=== PATIENT | male | born 1980 | race Caucasian/White ===

== ENCOUNTER 2018-01-20 01:30 | Inpatient (IN) ==
[2018-01-20] MEDS ORDERED: Acetaminophen 325 MG TABLET PO ONE (01:44)
[2018-01-20] MEDS ORDERED: 0.9 % Sodium Chloride 1,000 ML IVC ONE ×2 (01:47→03:27)
--- NOTE | 2018-01-20 02:00 | Emergency Department Note ---
Disposition Clinical Impression: Septic arthritis Qualifiers: Septic arthritis location: hip Septic arthritis organism: due to unspecified organism Laterality: right Qualified Code(s): M00.9 - Pyogenic arthritis, unspecified Disposition: Admitted As Inpatient Condition: Good General Adult HPI - General Chief complaint: ED General Medical Stated complaint: Pinched Nerve Time Seen by Provider: 01/20/18 01:42 Source: patient Mode of arrival: private vehicle Limitations: no limitations Nursing Notes Reviewed: Yes Vital Signs Reviewed: Yes - History of Present Illness HPI Narrative: 37-year-old male comes emergency department from a local [facility] for severe right groin pain. Patient states he had pain similarly 89 months ago and he was told he was suffering from sciatica, he was treated he got better and then over the last week patient has noted a resurgence of the pain. Patient states last 4 hours pain has been excruciating starts in his hip in the trochanter area and radiates around groin, pain is 10 out of 10. Patient states pain is sharp, worse with movement of the extremity, palpation of the groin. Patient denies slips, trips, trauma, falls. He states he was hunting footballs 3-4 days ago but other than that he has not done anything to for injury. Patient denies bowel or bladder incontinence, saddle anesthesia, numbness, tingling, paresthesia. He states some decreased strength but this is related to pain. Onset (ago): day(s) Location: other Radiation: other Pain Severity: severe Pain Scale: 10 Quality: sharp Consistency: constant, intermittent, Worsening Improves with: rest Worsens with: movement Associated symptoms: Denies: confusion, chest pain, cough, diaphoresis, fever/chills, headaches, loss of appetite, malaise, nausea/vomiting, rash, seizure, shortness of breath, syncope, weakness Treatments Prior to Arrival: none - Related Data Home Medications Medication Instructions Recorded Confirmed RX: No Known Home Drugs 01/20/18 01/20/18 Allergies Allergy/AdvReac Type Severity Reaction Status Date / Time No Known Allergies Allergy Verified 01/20/18 01:39 All systems ED: reviewed and negative except as stated. Review of Systems: As Per HPI Constitutional: Denies: fever, chills, weakness Cardiovascular: Denies: chest pain, palpitations Respiratory: Denies: cough Gastrointestinal: Denies: abdominal pain, nausea, vomiting Genitourinary: Denies: urgency, dysuria, frequency, hematuria, discharge, testicular pain, testicular mass, genital lesions Musculoskeletal: Reports: myalgia, other (right trochanter area with radiation to right groin). Denies: back pain, neck pain, joint swelling, arthralgia Integumentary: Denies: rash, lesions Neurological: Denies: headache, weakness, numbness, paresthesias, confusion Past Medical History - Past Medical History Attestation: Yes The following information was validated with the patient. Source: patient Medical history: Reports: no medical history Psychiatric history: Reports: no psych history - Social History Smoking Status: Never smoker Alcohol use: Reports: none Drug use: Reports: IV Drug Use Physical Exam - General Limitations: no limitations General appearance: alert, in distress (related to pain) - Head Head exam: atraumatic, normocephalic, normal inspection - Eye Eye exam: Present: normal appearance - ENT ENT exam: mucous membranes moist - Neck Neck exam: Present: normal inspection, full ROM, trachea midline. Absent: tend erness - Chest Chest inspection: Present: normal inspection, symmetric chest wall rise - Respiratory Respiratory exam: Present: normal lung sounds bilaterally - Cardiovascular Cardiovascular exam: Present: regular rate, normal rhythm, normal heart sounds - Abdominal Exam Abdominal exam: Present: soft, Non-Tender, normal bowel sounds - Male exam: Present: normal inspection, normal testicular lie, circumcised. Absent: penile swelling, erythema, testicular tenderness - Expanded Lower Extremity Exam Hip/Pelvis exam: Present: normal inspection, tenderness (bursa area with radiation around to groin). Absent: full ROM (limited due to pain), swelling Upper leg exam: Present: normal inspection, tenderness (inguinal canal). Absent: full ROM Knee exam: Present: normal inspection, full ROM Lower leg exam: Present: normal inspection, full ROM Ankle exam: Present: normal inspection, full ROM Foot/toe exam: Present: normal inspection, full ROM Neurovascular/Tendon exam: Present: normal capillary refill. Absent: pulse deficit, motor deficit, sensory deficit Gait: unable to bear weight - Back Exam Back exam: Present: normal inspection, full ROM, sciatic notch tenderness (R) (minimal compared to hip and inguinal area). Absent: tenderness, CVA tenderness (R), CVA tenderness (L), muscle spasm - Neurological Exam Neurological exam: Present: alert, oriented X3 - Psychiatric Psychiatric exam: Present: anxious - Skin Skin exam: Present: warm, dry, intact, normal color Course Course Narrative: Well developed male in moderate amount of distress related to pain. Pt with slight fever upon arrival at 100.7, tachycardic EKG reveals sinus tachycardia, no evidence of ischemia.. Pt appears in pain. Patient is moaning, he is diaphoretic and is grabbing his right leg. Examination reveals no spinal tenderness, full range of motion to spine and back. There is tenderness to the dorsal area of the right hip that is severe, severe tenderness with palpation in the right groin. Due to pain unable to tolerate standing for hernia palpation. I do not appreciate any skin lesions to body, no redness, swelling. Normal testicular lie, no pain or tenderness and scrotal area, no penile swelling. There is mild tenderness to the right sciatic area however this does not elicit near the screaming as the hip. Patient is neurovascularly intact, has full range of motion to knee, ankle, foot. Full sensation. Patient is able to move his right hip however he does complain of increasing pain whenever he does sound and is currently difficult to do this. We will treat pain, obtain labs and reevaluate. Patient with known past IV drug use, has been clean for greater than 4 months. The conversation with patient regarding treating pain, patient states he is in recovery, he is not on any opiate blockers, he does not feel concern at this time for repeat addiction, he states the pain is so severe that it is okay. We did discuss alternative options as well. Patient in IV drug use, concern for spinal abscess, septic arthritis. It is possible patient pulled a muscle while punting footballs and he is developing a viral illness however, I feel be prudent to look for abscesses, septic arthritis prior to making this determination. - Reevaluation(s) Reevaluation #1: Patient resting quietly, he has remained in some pain, continue to treat pain medication. Labs returned with an elevated white count of 16.3 with left shift, ESR 26, CRP 22, lactic acid 1.6, BMP is negative. CTA of the hip is suggestive of septic arthritis. Tachycardia has resolved, temperature is decreasing, no evidence of severe sepsis. I did call and speak with Dr. Garcia from orthopedics, he recommends admission to the hospital with the hospitalist, IV antibiotics, consulting IR and Ortho. I did discuss this with patient, he is agreeable to admission to the hospital for management and pain control. Spoke with the hospitalist who is agreeable to accept patient. We will transition care the hospitalist team at this time. Time: 04:19 Vital Signs Temperature 100.7 F H 01/20/18 01:34 Pulse Rate 122 01/20/18 01:34 Respiratory Rate 20 01/20/18 01:34 Blood Pressure 164/89 01/20/18 01:34 O2 Sat by Pulse Oximetry 98 01/20/18 01:34 Temperature 99.2 F 01/20/18 03:45 Pulse Rate 92 01/20/18 03:45 Respiratory Rate 21 01/20/18 04:31 Blood Pressure 138/74 01/20/18 04:31 O2 Sat by Pulse Oximetry 100 01/20/18 03:45 Oxygen Delivery Oxygen Delivery Room Air Medical Decision Making - Lab Data Lab results reviewed: Yes I reviewed the patient's lab results. Lab results narrative: All Lab Results (24 Hours) 01/20/18 01/20/18 01/20/18 Range/Units 02:25 02:25 02:25 WBC 16.3 H (4.3-11.1) K/mcL RBC 5.01 (4.19-5.50) M/mcL Hgb 15.1 (12.9-16.9) g/dL Hct 45.0 (37.5-50.1) % MCV 89.8 (83.0-100.0) fL MCH 30.1 (28.0-33.3) pg MCHC 33.6 (31.6-35.5) g/dL RDW 12.7 (11.5-14.5) % Plt Count 265 (140-400) K/mcL MPV 9.6 (9.4-12.4) fL Immature Gran % 0.4 (0-4) % Seg Neutrophils % 79.1 % Lymphocytes % 13.5 % Monocytes % 6.4 % Eosinophils % 0.2 % Basophils % 0.4 % Neutrophils # 13.0 H (1.6-8.9) K/mcL Lymphocytes # 2.2 (0.6-4.6) K/mcL Monocytes # 1.0 (0.0-1.3) K/mcL Eosinophils # 0.0 (0.0-0.6) K/mcL Basophils # 0.1 (0.0-0.2) K/mcL ESR 26 H (0-10) mm/hr Sodium 137 (136-145) mEq/L Potassium 3.8 (3.5-5.1) mEq/L Chloride 105 (98-107) mEq/L Carbon Dioxide 23 (23-29) mEq/L BUN 9 (6-20) mg/dL Creatinine 0.83 (0.70-1.30) mg/dL Est GFR ( Amer) > 60 (> 60) Est GFR (Non-Af Amer) > 60 (> 60) BUN/Creatinine Ratio 11 (6-26) Glucose 108 H (70-105) mg/dL Calculated Osmolality 283 (280-300) Lactic Acid (0.5-2.2) mmol/L Calcium 9.4 (8.6-10.3) mg/dL Total Bilirubin 0.3 (0.3-1.0) mg/dL AST 14 (13-39) Units/L ALT 12 (7-52) Units/L Alkaline Phosphatase 56 (34-104) Units/L C-Reactive Protein 22 H (Less than 10) mg/L Serum Total Protein 7.8 (6.4-8.9) g/dL Albumin 4.5 (3.5-5.7) g/dL Globulin 3.3 (2.4-3.5) g/dL Albumin/Globulin Ratio 1.4 (1.1-2.2) Urine Color (Yellow) Urine Clarity (Clear) Urine pH (5.0-8.0) pH Units Ur Specific Brantley (1.010-1.025) Urine Protein (Neg-Trace) mg/dL Urine Glucose (UA) (Normal) mg/dL Urine Ketones (Negative) mg/dL Urine Blood (Negative) Urine Nitrite (Negative) Urine Bilirubin (Negative) Urine Urobilinogen (Normal) mg/dL Ur Leukocyte Esterase (Negative) Urine Microscopic RBC (0-3) per hpf Urine Microscopic WBC (0-3) per hpf Ur Squamous Epith Cells (None-Few) per lpf Urine Bacteria (None-Few) per hpf Hyaline Casts (None-Few) per lpf Ur Culture Indicated? (NO) 01/20/18 01/20/18 Range/Units 02:25 03:24 WBC (4.3-11.1) K/mcL RBC (4.19-5.50) M/mcL Hgb (12.9-16.9) g/dL Hct (37.5-50.1) % MCV (83.0-100.0) fL MCH (28.0-33.3) pg MCHC (31.6-35.5) g/dL RDW (11.5-14.5) % Plt Count (140-400) K/mcL MPV (9.4-12.4) fL Immature Gran % (0-4) % Seg Neutrophils % % Lymphocytes % % Monocytes % % Eosinophils % % Basophils % % Neutrophils # (1.6-8.9) K/mcL Lymphocytes # (0.6-4.6) K/mcL Monocytes # (0.0-1.3) K/mcL Eosinophils # (0.0-0.6) K/mcL Basophils # (0.0-0.2) K/mcL ESR (0-10) mm/hr Sodium (136-145) mEq/L Potassium (3.5-5.1) mEq/L Chloride (98-107) mEq/L Carbon Dioxide (23-29) mEq/L BUN (6-20) mg/dL Creatinine (0.70-1.30) mg/dL Est GFR ( Amer) (> 60) Est GFR (Non-Af Amer) (> 60) BUN/Creatinine Ratio (6-26) Glucose (70-105) mg/dL Calculated Osmolality (280-300) Lactic Acid 1.6 (0.5-2.2) mmol/L Calcium (8.6-10.3) mg/dL Total Bilirubin (0.3-1.0) mg/dL AST (13-39) Units/L ALT (7-52) Units/L Alkaline Phosphatase (34-104) Units/L C-Reactive Protein (Less than 10) mg/L Serum Total Protein (6.4-8.9) g/dL Albumin (3.5-5.7) g/dL Globulin (2.4-3.5) g/dL Albumin/Globulin Ratio (1.1-2.2) Urine Color Yellow (Yellow) Urine Clarity Clear (Clear) Urine pH 5.5 (5.0-8.0) pH Units Ur Specific Brantley 1.017 (1.010-1.025) Urine Protein Negative (Neg-Trace) mg/dL Urine Glucose (UA) Normal (Normal) mg/dL Urine Ketones Negative (Negative) mg/dL Urine Blood Negative (Negative) Urine Nitrite Negative (Negative) Urine Bilirubin Negative (Negative) Urine Urobilinogen Normal (Normal) mg/dL Ur Leukocyte Esterase Small H (Negative) Urine Microscopic RBC 3-5 H (0-3) per hpf Urine Microscopic WBC 5-15 H (0-3) per hpf Ur Squamous Epith Cells Moderate H (None-Few) per lpf Urine Bacteria None Seen (None-Few) per hpf Hyaline Casts None Seen (None-Few) per lpf Ur Culture Indicated? YES A (NO) Result diagrams: 01/20/18 02:25 01/20/18 02:25 Lab Results 01/20/18 01/20/18 01/20/18 Range/Units 02:25 02:25 02:25 WBC 16.3 H (4.3-11.1) K/mcL RBC 5.01 (4.19-5.50) M/mcL Hgb 15.1 (12.9-16.9) g/dL Hct 45.0 (37.5-50.1) % MCV 89.8 (83.0-100.0) fL MCH 30.1 (28.0-33.3) pg MCHC 33.6 (31.6-35.5) g/dL RDW 12.7 (11.5-14.5) % Plt Count 265 (140-400) K/mcL MPV 9.6 (9.4-12.4) fL Immature Gran % 0.4 (0-4) % Seg Neutrophils % 79.1 % Lymphocytes % 13.5 % Monocytes % 6.4 % Eosinophils % 0.2 % Basophils % 0.4 % Neutrophils # 13.0 H (1.6-8.9) K/mcL Lymphocytes # 2.2 (0.6-4.6) K/mcL Monocytes # 1.0 (0.0-1.3) K/mcL Eosinophils # 0.0 (0.0-0.6) K/mcL Basophils # 0.1 (0.0-0.2) K/mcL ESR 26 H (0-10) mm/hr Sodium 137 (136-145) mEq/L Potassium 3.8 (3.5-5.1) mEq/L Chloride 105 (98-107) mEq/L Carbon Dioxide 23 (23-29) mEq/L BUN 9 (6-20) mg/dL Creatinine 0.83 (0.70-1.30) mg/dL Est GFR ( Amer) > 60 (> 60) Est GFR (Non-Af Amer) > 60 (> 60) BUN/Creatinine Ratio 11 (6-26) Glucose 108 H (70-105) mg/dL Calculated Osmolality 283 (280-300) Lactic Acid (0.5-2.2) mmol/L Calcium 9.4 (8.6-10.3) mg/dL Total Bilirubin 0.3 (0.3-1.0) mg/dL AST 14 (13-39) Units/L ALT 12 (7-52) Units/L Alkaline Phosphatase 56 (34-104) Units/L C-Reactive Protein 22 H (Less than 10) mg/L Serum Total Protein 7.8 (6.4-8.9) g/dL Albumin 4.5 (3.5-5.7) g/dL Globulin 3.3 (2.4-3.5) g/dL Albumin/Globulin Ratio 1.4 (1.1-2.2) Urine Color (Yellow) Urine Clarity (Clear) Urine pH (5.0-8.0) pH Units Ur Specific Brantley (1.010-1.025) Urine Protein (Neg-Trace) mg/dL Urine Glucose (UA) (Normal) mg/dL Urine Ketones (Negative) mg/dL Urine Blood (Negative) Urine Nitrite (Negative) Urine Bilirubin (Negative) Urine Urobilinogen (Normal) mg/dL Ur Leukocyte Esterase (Negative) Urine Microscopic RBC (0-3) per hpf Urine Microscopic WBC (0-3) per hpf Ur Squamous Epith Cells (None-Few) per lpf Urine Bacteria (None-Few) per hpf Hyaline Casts (None-Few) per lpf Ur Culture Indicated? (NO) 01/20/18 01/20/18 Range/Units 02:25 03:24 WBC (4.3-11.1) K/mcL RBC (4.19-5.50) M/mcL Hgb (12.9-16.9) g/dL Hct (37.5-50.1) % MCV (83.0-100.0) fL MCH (28.0-33.3) pg MCHC (31.6-35.5) g/dL RDW (11.5-14.5) % Plt Count (140-400) K/mcL MPV (9.4-12.4) fL Immature Gran % (0-4) % Seg Neutrophils % % Lymphocytes % % Monocytes % % Eosinophils % % Basophils % % Neutrophils # (1.6-8.9) K/mcL Lymphocytes # (0.6-4.6) K/mcL Monocytes # (0.0-1.3) K/mcL Eosinophils # (0.0-0.6) K/mcL Basophils # (0.0-0.2) K/mcL ESR (0-10) mm/hr Sodium (136-145) mEq/L Potassium (3.5-5.1) mEq/L Chloride (98-107) mEq/L Carbon Dioxide (23-29) mEq/L BUN (6-20) mg/dL Creatinine (0.70-1.30) mg/dL Est GFR ( Amer) (> 60) Est GFR (Non-Af Amer) (> 60) BUN/Creatinine Ratio (6-26) Glucose (70-105) mg/dL Calculated Osmolality (280-300) Lactic Acid 1.6 (0.5-2.2) mmol/L Calcium (8.6-10.3) mg/dL Total Bilirubin (0.3-1.0) mg/dL AST (13-39) Units/L ALT (7-52) Units/L Alkaline Phosphatase (34-104) Units/L C-Reactive Protein (Less than 10) mg/L Serum Total Protein (6.4-8.9) g/dL Albumin (3.5-5.7) g/dL Globulin (2.4-3.5) g/dL Albumin/Globulin Ratio (1.1-2.2) Urine Color Yellow (Yellow) Urine Clarity Clear (Clear) Urine pH 5.5 (5.0-8.0) pH Units Ur Specific Brantley 1.017 (1.010-1.025) Urine Protein Negative (Neg-Trace) mg/dL Urine Glucose (UA) Normal (Normal) mg/dL Urine Ketones Negative (Negative) mg/dL Urine Blood Negative (Negative) Urine Nitrite Negative (Negative) Urine Bilirubin Negative (Negative) Urine Urobilinogen Normal (Normal) mg/dL Ur Leukocyte Esterase Small H (Negative) Urine Microscopic RBC 3-5 H (0-3) per hpf Urine Microscopic WBC 5-15 H (0-3) per hpf Ur Squamous Epith Cells Moderate H (None-Few) per lpf Urine Bacteria None Seen (None-Few) per hpf Hyaline Casts None Seen (None-Few) per lpf Ur Culture Indicated? YES A (NO) - Radiology Data Radiology results reviewed: Yes I reviewed the patient's radiology results. - EKG Data EKG #1 EKG attestation: Yes I reviewed and interpreted this EKG.
[2018-01-20] MEDS ORDERED: *HR* Nalbuphine 10 MG/ML AMPUL IVP ONE (02:14)
[2018-01-20 02:39] LABS: Basophils # 0.1 K/mcL (0.0-0.2); Basophils % 0.4 %; Eosinophils % 0.2 %; Hemoglobin 15.1 g/dL (12.9-16.9); Immature Granulocytes % 0.4 % (0-4); Lymphocytes # 2.2 K/mcL (0.6-4.6); Lymphocytes % 13.5 %; Mean Corpuscular HGB Conc 33.6 g/dL (31.6-35.5); Mean Corpuscular Hemoglobin 30.1 pg (28.0-33.3); Mean Corpuscular Volume 89.8 fL (83.0-100.0); Mean Platelet Volume 9.6 fL (9.4-12.4); Monocytes % 6.4 %; Platelet Count 265 K/mcL (140-400); Red Blood Count 5.01 M/mcL (4.19-5.50); Red Cell Distribution Width 12.7 % (11.5-14.5); Segmented Neutrophils % 79.1 %
[2018-01-20 03:04] LABS: Alanine Aminotransferase 12 Units/L (7-52); Albumin 4.5 g/dL (3.5-5.7); Albumin/Globulin Ratio 1.4 (1.1-2.2); Alkaline Phosphatase 56 Units/L (34-104); Aspartate Amino Transferase 14 Units/L (13-39); BUN/Creatinine Ratio 11 (6-26); Bilirubin,Total 0.3 mg/dL (0.3-1.0); Blood Urea Nitrogen 9 mg/dL (6-20); C-Reactive Protein 22 mg/L (Less than 10); Calcium 9.4 mg/dL (8.6-10.3); Carbon Dioxide 23 mEq/L (23-29); Chloride 105 mEq/L (98-107); Globulin 3.3 g/dL (2.4-3.5); Glucose 108 mg/dL (70-105); Osmolality,Calculated 283 (280-300); Potassium 3.8 mEq/L (3.5-5.1); Sodium 137 mEq/L (136-145); Total Protein 7.8 g/dL (6.4-8.9); eGFR For Non-African Americans > 60 (> 60)
[2018-01-20] MEDS ORDERED: Isovue-370 500 ML INFUS..BTL IV ONE (03:13)
[2018-01-20] MEDS ORDERED: *HR* FentaNYL (PF) 100 MCG/2 ML VIAL IVP ONE (03:27)
[2018-01-20 03:44] LABS: Bilirubin,Urine Negative (Negative); Blood,Urine Negative (Negative); Clarity,Urine Clear (Clear); Color,Urine Yellow (Yellow); Glucose,Urine (UA) Normal (Normal); Ketones,Urine Negative (Negative); Leukocyte Esterase,Urine Small (Negative); Nitrite,Urine Negative (Negative); PH,Urine 5.5 pH Units (5.0-8.0); Protein,Urine Negative (Neg-Trace); Specific Gravity,Urine 1.017 (1.010-1.025); Urobilinogen,Urine Normal (Normal)
[2018-01-20 03:45] LABS: Bacteria,Urine None Seen per hpf (None-Few); Hyaline Casts,Urine None Seen per lpf (None-Few); Squamous Epithelial Cell,Urine Moderate per lpf (None-Few)
[2018-01-20] MEDS ORDERED: cefTRIAXone 2,000 MG in 0.9 % Sodium Chloride Mini Bag 100 ML IVPB ONE (03:58)
[2018-01-20] MEDS ORDERED: *HR* LORazepam 2 MG/ML VIAL IVP ONE (04:05)
--- NOTE | 2018-01-20 04:48 | Emergency Department Note ---
Disposition Clinical Impression: Septic arthritis Qualifiers: Septic arthritis location: hip Septic arthritis organism: due to unspecified organism Laterality: right Qualified Code(s): M00.9 - Pyogenic arthritis, unspecified Disposition: Admitted As Inpatient Condition: Good General Adult HPI - General Chief complaint: ED General Medical Stated complaint: Pinched Nerve Time Seen by Provider: 01/20/18 01:42 Source: patient Mode of arrival: private vehicle Limitations: no limitations Nursing Notes Reviewed: Yes Vital Signs Reviewed: Yes - History of Present Illness Location: other Pain Scale: 10 Quality: sharp Improves with: rest Worsens with: movement Associated symptoms: Denies: confusion, chest pain, cough, diaphoresis, fever/chills, headaches, loss of appetite, malaise, nausea/vomiting, rash, seizure, shortness of breath, syncope, weakness Treatments Prior to Arrival: none - Related Data Home Medications Medication Instructions Recorded Confirmed No Known Home Drugs 01/20/18 01/20/18 Allergies Allergy/AdvReac Type Severity Reaction Status Date / Time No Known Allergies Allergy Verified 01/20/18 01:39 Constitutional: Denies: fever, chills, weakness Cardiovascular: Denies: chest pain, palpitations Respiratory: Denies: cough Gastrointestinal: Denies: abdominal pain, nausea, vomiting Genitourinary: Denies: urgency, dysuria, frequency, hematuria, discharge, testicular pain, testicular mass, genital lesions Musculoskeletal: Reports: myalgia, other (right trochanter area with radiation to right groin). Denies: back pain, neck pain, joint swelling, arthralgia Integumentary: Denies: rash, lesions Neurological: Denies: headache, weakness, numbness, paresthesias, confusion Past Medical History - Past Medical History Medical history: Reports: no medical history Psychiatric history: Reports: no psych history - Social History Smoking Status: Never smoker Alcohol use: Reports: none Drug use: Reports: IV Drug Use Physical Exam - General Limitations: no limitations General appearance: alert, in distress (related to pain) Course Vital Signs Temperature 100.7 F H 01/20/18 01:34 Pulse Rate 122 01/20/18 01:34 Respiratory Rate 20 01/20/18 01:34 Blood Pressure 164/89 01/20/18 01:34 O2 Sat by Pulse Oximetry 98 01/20/18 01:34 Temperature 99.2 F 01/20/18 03:45 Pulse Rate 92 01/20/18 03:45 Respiratory Rate 21 01/20/18 04:31 Blood Pressure 138/74 01/20/18 04:31 O2 Sat by Pulse Oximetry 100 01/20/18 03:45 Oxygen Delivery Oxygen Delivery Room Air Medical Decision Making - Medical Records Medical records reviewed: Yes I reviewed the patient's medical records. - Lab Data Lab results reviewed: Yes I reviewed the patient's lab results. Result diagrams: 01/20/18 02:25 01/20/18 02:25 Lab Results 01/20/18 01/20/18 01/20/18 Range/Units 02:25 02:25 02:25 WBC 16.3 H (4.3-11.1) K/mcL RBC 5.01 (4.19-5.50) M/mcL Hgb 15.1 (12.9-16.9) g/dL Hct 45.0 (37.5-50.1) % MCV 89.8 (83.0-100.0) fL MCH 30.1 (28.0-33.3) pg MCHC 33.6 (31.6-35.5) g/dL RDW 12.7 (11.5-14.5) % Plt Count 265 (140-400) K/mcL MPV 9.6 (9.4-12.4) fL Immature Gran % 0.4 (0-4) % Seg Neutrophils % 79.1 % Lymphocytes % 13.5 % Monocytes % 6.4 % Eosinophils % 0.2 % Basophils % 0.4 % Neutrophils # 13.0 H (1.6-8.9) K/mcL Lymphocytes # 2.2 (0.6-4.6) K/mcL Monocytes # 1.0 (0.0-1.3) K/mcL Eosinophils # 0.0 (0.0-0.6) K/mcL Basophils # 0.1 (0.0-0.2) K/mcL ESR 26 H (0-10) mm/hr Sodium 137 (136-145) mEq/L Potassium 3.8 (3.5-5.1) mEq/L Chloride 105 (98-107) mEq/L Carbon Dioxide 23 (23-29) mEq/L BUN 9 (6-20) mg/dL Creatinine 0.83 (0.70-1.30) mg/dL Est GFR ( Amer) > 60 (> 60) Est GFR (Non-Af Amer) > 60 (> 60) BUN/Creatinine Ratio 11 (6-26) Glucose 108 H (70-105) mg/dL Calculated Osmolality 283 (280-300) Lactic Acid (0.5-2.2) mmol/L Calcium 9.4 (8.6-10.3) mg/dL Total Bilirubin 0.3 (0.3-1.0) mg/dL AST 14 (13-39) Units/L ALT 12 (7-52) Units/L Alkaline Phosphatase 56 (34-104) Units/L C-Reactive Protein 22 H (Less than 10) mg/L Serum Total Protein 7.8 (6.4-8.9) g/dL Albumin 4.5 (3.5-5.7) g/dL Globulin 3.3 (2.4-3.5) g/dL Albumin/Globulin Ratio 1.4 (1.1-2.2) Urine Color (Yellow) Urine Clarity (Clear) Urine pH (5.0-8.0) pH Units Ur Specific Lucas (1.010-1.025) Urine Protein (Neg-Trace) mg/dL Urine Glucose (UA) (Normal) mg/dL Urine Ketones (Negative) mg/dL Urine Blood (Negative) Urine Nitrite (Negative) Urine Bilirubin (Negative) Urine Urobilinogen (Normal) mg/dL Ur Leukocyte Esterase (Negative) Urine Microscopic RBC (0-3) per hpf Urine Microscopic WBC (0-3) per hpf Ur Squamous Epith Cells (None-Few) per lpf Urine Bacteria (None-Few) per hpf Hyaline Casts (None-Few) per lpf Ur Culture Indicated? (NO) 01/20/18 01/20/18 Range/Units 02:25 03:24 WBC (4.3-11.1) K/mcL RBC (4.19-5.50) M/mcL Hgb (12.9-16.9) g/dL Hct (37.5-50.1) % MCV (83.0-100.0) fL MCH (28.0-33.3) pg MCHC (31.6-35.5) g/dL RDW (11.5-14.5) % Plt Count (140-400) K/mcL MPV (9.4-12.4) fL Immature Gran % (0-4) % Seg Neutrophils % % Lymphocytes % % Monocytes % % Eosinophils % % Basophils % % Neutrophils # (1.6-8.9) K/mcL Lymphocytes # (0.6-4.6) K/mcL Monocytes # (0.0-1.3) K/mcL Eosinophils # (0.0-0.6) K/mcL Basophils # (0.0-0.2) K/mcL ESR (0-10) mm/hr Sodium (136-145) mEq/L Potassium (3.5-5.1) mEq/L Chloride (98-107) mEq/L Carbon Dioxide (23-29) mEq/L BUN (6-20) mg/dL Creatinine (0.70-1.30) mg/dL Est GFR ( Amer) (> 60) Est GFR (Non-Af Amer) (> 60) BUN/Creatinine Ratio (6-26) Glucose (70-105) mg/dL Calculated Osmolality (280-300) Lactic Acid 1.6 (0.5-2.2) mmol/L Calcium (8.6-10.3) mg/dL Total Bilirubin (0.3-1.0) mg/dL AST (13-39) Units/L ALT (7-52) Units/L Alkaline Phosphatase (34-104) Units/L C-Reactive Protein (Less than 10) mg/L Serum Total Protein (6.4-8.9) g/dL Albumin (3.5-5.7) g/dL Globulin (2.4-3.5) g/dL Albumin/Globulin Ratio (1.1-2.2) Urine Color Yellow (Yellow) Urine Clarity Clear (Clear) Urine pH 5.5 (5.0-8.0) pH Units Ur Specific Lucas 1.017 (1.010-1.025) Urine Protein Negative (Neg-Trace) mg/dL Urine Glucose (UA) Normal (Normal) mg/dL Urine Ketones Negative (Negative) mg/dL Urine Blood Negative (Negative) Urine Nitrite Negative (Negative) Urine Bilirubin Negative (Negative) Urine Urobilinogen Normal (Normal) mg/dL Ur Leukocyte Esterase Small H (Negative) Urine Microscopic RBC 3-5 H (0-3) per hpf Urine Microscopic WBC 5-15 H (0-3) per hpf Ur Squamous Epith Cells Moderate H (None-Few) per lpf Urine Bacteria None Seen (None-Few) per hpf Hyaline Casts None Seen (None-Few) per lpf Ur Culture Indicated? YES A (NO) - Radiology Data Radiology results reviewed: Yes I reviewed the patient's radiology results. Hip CT 01/20/18 03:13 IMPRESSION: Findings are most suggestive of septic arthritis on the right. D/ / Rufino Neri MD / Rufino Neri MD Interpreting Provider: Rufino Neri MD - EKG Data EKG #1 EKG attestation: Yes I reviewed and interpreted this EKG. EKG results narrative: EKG shows sinus tachycardia with ventricular rate of 117. No ST segment elevation or depression. No ectopy. Critical Care Time Critical Care Time: Yes Total Critical Care Time: 30 Attestation: Critical care performed: Time is exclusive of separately billable procedures. Time includes: direct patient care, patient reassessment, coordination of patient care, interpretation of data (laboratory data, radiology data, and respiratory data), review of patient's medical records, medical consultation and documentation of patient care. Procedures included in critical care time: Procedures excluded from critical care time: Attestation Statement - Attestation Attestation: I, Alberto Shultz MD, personally evaluated this patient and discussed their management with the midlevel provicer, PAC[employer] ESC[employer]. I reviewed the midlevel provider's note and agree with the documented findings, medical decision making, and plan of care. 37-year-old male presents to the emergency department with a complaint of right hip pain. He denies any known injury. He states it is been hurting slightly for the past several days but tonight several hours prior to arrival the pain became acutely more severe. The pain is primarily in the right inguinal and groin region down into the anterior medial right thigh. No numbness or tingling or weakness. No mid back pain. Patient febrile and tachycardic on arrival. He does have a history of IV drug use in the past but has not used any for more than 4 months. On examination patient is a well-developed well-nourished male in no acute distress but does appear to be in moderate to severe pain. He is alert and oriented 3. No cyanosis or diaphoresis. Breath sounds are clear and equal bilaterally. Heart regular with a mild tachycardia. Abdomen soft and nontender with normal bowel sounds. There is marked tenderness palpation of the right hip and groin area. Marked pain with any movement of the right hip. Neurovascular function intact distally. Labs reviewed. CT of the hip shows an effusion, likely septic arthritis. Blood cultures obtained. IV antibiotics initiated. The orthopedist pulmonology technician, Dr. Garcia, was consulted and will follow-up with the patient in the hospital. The hospitalist, Dr. Hampton, was consulted and accepted admission of the patient.
[2018-01-20] MEDS ORDERED: Naloxone 0.4 MG/ML INJ IVP PRN (05:04)
[2018-01-20] MEDS: OXYCODONE Oral CONC 10 MG/0.5 ML ORAL.SYG SL PRN ×4 (05:26→20:21)
[2018-01-20] MEDS: 0.9 % Sodium Chloride 1,000 ML IVC SCH ×2 (05:27→21:33)
--- NOTE | 2018-01-20 06:52 | Orthopedic Consult Note ---
Date of Encounter: 01/20/18 Time of Encounter: 06:51 History of Present Illness HPI: Mr. Perez is a 37 year old male Reports right hip pain for 48 hours. Patient relates that 2 daily taking a f ootball on Thursday. Patient has a history of drug use denies any recent IV drug use. Patient is seen in his room with his right leg in a fully flexed position of the hip. Patient has decreased motion secondary to pain. CT scan was reviewed shows fluid in the hip joint, patient has elevated white count elevated sedimentation rate elevated CRP. Recommend ultrasound-guided right hip aspiration. Past Med Surg Social Fam HX - Past Medical History Medical history: no medical history Psychiatric history: no psych history - Past Surgical History Surgical History: appendectomy - Social History Smoking Status: Never smoker Smokeless Tobacco Status: No Alcohol use: none Drug use: IV Drug Use Medications and Allergies No Known Home Drugs 01/20/18 [History] Allergy/AdvReac Type Severity Reaction Status Date / Time No Known Allergies Allergy Verified 01/20/18 01:39 All Systems Reviewed: The remainder of the systems were reviewed and are negative Physical Exam - Constitutional Vitals: Temp Pulse Resp BP Pulse Ox 99.2 F 110 18 129/75 96 01/20/18 05:08 01/20/18 05:08 01/20/18 05:08 01/20/18 05:08 01/20/18 05:08 Results - Labs Result Diagrams: 01/20/18 02:25 01/20/18 02:25 Labs: Abnormal lab results WBC 16.3 K/mcL (4.3-11.1) H 01/20/18 02:25 Neutrophils # 13.0 K/mcL (1.6-8.9) H 01/20/18 02:25 ESR 26 mm/hr (0-10) H 01/20/18 02:25 Glucose 108 mg/dL (70-105) H 01/20/18 02:25 C-Reactive Protein 22 mg/L (Less than 10) H 01/20/18 02:25 Ur Leukocyte Esterase Small (Negative) H 01/20/18 03:24 Urine Microscopic RBC 3-5 per hpf (0-3) H 01/20/18 03:24 Urine Microscopic WBC 5-15 per hpf (0-3) H 01/20/18 03:24 Ur Squamous Epith Cells Moderate per lpf (None-Few) H 01/20/18 03:24 Ur Culture Indicated? YES (NO) A 01/20/18 03:24 H & H 01/20/18 Range/Units 02:25 Hgb 15.1 (12.9-16.9) g/dL Hct 45.0 (37.5-50.1) % All other labs normal. Consult Discharge Plan - Plan Referrals: NONE,PCP [Primary Care Provider] -
[2018-01-20] MEDS: Ketorolac 30 MG/ML VIAL IVP PRN ×2 (08:11→14:00)
[2018-01-20] MEDS ORDERED: Ondansetron 4 MG/2 ML VIAL IVP PRN (09:06)
[2018-01-20] MEDS ORDERED: Acetaminophen 325 MG TABLET PO PRN (09:06)
[2018-01-20 09:16] LABS: INR 1.2; Prothrombin Time 13.7 Seconds (9.4-12.1)
--- NOTE | 2018-01-20 09:17 | Internal Med History&Physical ---
Date of Encounter: 01/20/18 Time of Encounter: 08:00 Internal Medicine - H&P: HPI Chief complaint: Right hip pain Admitted From: Home Plans for Post Hospital Care: Home History of present illness: Mr. Perez is a 37 year old male presented to ER for right hip pain. Past medical history is significant for history of IV drug use, tobacco abuse. Patient said he was fine on Thursday and have played football. Since Thursday he started to have right hip pain. The pain is getting worse progressively and he cannot walk on Thursday. Patient has fever with temperature 100.7, has chills. Patient denies other joint pain or swelling. Patient has mild nausea but no vomiting. In the emergency room, patient was found leukocytosis, CT right hip shows suspected septic arthritis. Patient was placed on IV fluid and IV antibio tics and admitted for further management. Past Med Surg Social Fam HX - Past Medical History Medical history: no medical history Psychiatric history: no psych history - Past Surgical History Surgical History: appendectomy - Social History Smoking Status: Never smoker Smokeless Tobacco Status: No Alcohol use: none Drug use: IV Drug Use - Family History Mother History Unknown: Yes Internal Medicine - H&P: Meds No Known Home Drugs 01/20/18 [History] Allergy/AdvReac Type Severity Reaction Status Date / Time No Known Allergies Allergy Verified 01/20/18 01:39 All Systems PM: A 10-system review of systems was performed and is negative for pertinent findings except as documented above in the HPI. - Constitutional Vitals: Temp Pulse Resp BP Pulse Ox 98.6 F 110 18 122/70 95 01/20/18 07:05 01/20/18 07:05 01/20/18 07:05 01/20/18 07:05 01/20/18 07:05 General appearance: Present: A&O X 3, no acute distress, answers questions appropriately Exam: Pt is AAO x 3, in acute pain HEENT: NC/AT, PERRL Neck: Supple, no JVD, no LAD Lungs: CTA b/l Heart: S1S2, RRR, tachycardia Abd: Soft, nontender, BS present Ext: Right hip ROM limited due to pain, no pedal edema Neuro: No focal deficit Internal Med - H&P Results - Labs CBC & Chem 7: 01/20/18 02:25 01/20/18 02:25 Labs: Short CBC 01/20/18 Range/Units 02:25 WBC 16.3 H (4.3-11.1) K/mcL Hgb 15.1 (12.9-16.9) g/dL Hct 45.0 (37.5-50.1) % Plt Count 265 (140-400) K/mcL Neutrophils # 13.0 H (1.6-8.9) K/mcL BMP 01/20/18 02:25 Sodium 137 Potassium 3.8 Chloride 105 Carbon Dioxide 23 BUN 9 Creatinine 0.83 Glucose 108 H Calcium 9.4 Liver Function 01/20/18 Range/Units 02:25 Total Bilirubin 0.3 (0.3-1.0) mg/dL AST 14 (13-39) Units/L ALT 12 (7-52) Units/L Alkaline Phosphatase 56 (34-104) Units/L Albumin 4.5 (3.5-5.7) g/dL Urine 01/20/18 Range/Units 03:24 Urine Color Yellow (Yellow) Urine Clarity Clear (Clear) Urine pH 5.5 (5.0-8.0) pH Units Ur Specific [place] 1.017 (1.010-1.025) Urine Protein Negative (Neg-Trace) mg/dL Urine Glucose (UA) Normal (Normal) mg/dL - Impressions ITS Impressions Hip CT 01/20/18 03:13 IMPRESSION: Findings are most suggestive of septic arthritis on the right. D/ / Rufino Neri MD / Rufino Neri MD Interpreting Provider: Rufino Neri MD - Assessment and plan (1) Sepsis Current Visit: Yes Status: Acute Assessment and plan: Patient meets sepsis criteria with fever, leukocytosis, and tachycardia. The source of infection is highly suspect right hip septic arthritis. - IV fluid resuscitation started from ER, initial lactate 1.6 - Continue IV fluid - Place patient on IV Vanco and Zosyn. Follow-up blood culture and joint aspiration analysis results - Consult orthopedic - Consult IR for US guided joint aspiration Qualifiers: Sepsis type: sepsis due to unspecified organism Qualified Code(s): A41.9 - Sepsis, unspecified organism (2) Hx of intravenous drug use, in remission Current Visit: Yes Status: Acute Assessment and plan: Patient said he has quit IV drug use for about 5 months. As patient has sepsis now, will follow blood culture results, which has been drawn in the emergency room. (3) Tobacco abuse Current Visit: Yes Status: Acute Assessment and plan: Smoking cessation education. Place patient on nicotine patch (4) DVT prophylaxis Current Visit: Yes Status: Acute Assessment and plan: Heparin subcutaneously (5) Septic arthritis Current Visit: Yes Status: Suspected Assessment and plan: Patient has history of IV drug use. Has right hip pain with CT suggestive of septic arthritis. Has fever and leukocytosis. Suspect septic arthritis. - Place patient on Vanco and Zosyn - Orthopedic consult appreciated - IR aspiration for fluid analysis. - Pain medication for pain Qualifiers: Septic arthritis location: hip Septic arthritis organism: due to unspecified organism Laterality: right Qualified Code(s): M00.9 - Pyogenic arthritis, unspecified - Time Spent With Patient Total time spent is greater than 50% in coordination of care (as documented) at patient's floor/unit and/or counseling patient:40 minutes Greater than 35 minutes
[2018-01-20] MEDS ORDERED: Vancomycin (wt based) 1,000 MG VIAL IVPB SCH (10:00)
[2018-01-20] MEDS: Nicotine 21 MG PATCH.TD24 TD SCH (10:03)
--- NOTE | 2018-01-20 14:44 | Electrocardiograph Report ---
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
[2018-01-20] MEDS: Piperacillin/Tazobactam 3.375 GM in 0.9 % Sodium Chloride Mini Bag 100 ML IVPB SCH (16:18)
[2018-01-20] MEDS: *HR* Heparin 5,000 UNIT/ML VIAL SQ SCH (16:19)
[2018-01-20 17:01] LABS: Chlamydia Trachomatis DNA Ur DETECTED (Not Detect)
[2018-01-20 18:58] LABS: Appearance,Synovial Fluid Cloudy (Clear-Hazy); Color,Synovial Fluid Straw (Straw)
[2018-01-21] MEDS: Ketorolac 30 MG/ML VIAL IVP PRN (00:11)
[2018-01-21] MEDS: Piperacillin/Tazobactam 3.375 GM in 0.9 % Sodium Chloride Mini Bag 100 ML IVPB SCH ×2 (00:13→09:09)
[2018-01-21] MEDS: OXYCODONE Oral CONC 10 MG/0.5 ML ORAL.SYG SL PRN ×3 (04:40→13:54)
[2018-01-21] MEDS: *HR* Heparin 5,000 UNIT/ML VIAL SQ SCH ×2 (04:42→17:16)
[2018-01-21 05:54] LABS: Basophils % 0.2 %; Hematocrit 40.5 % (37.5-50.1); Immature Granulocytes % 0.3 % (0-4); Lymphocytes % 11.1 %; Mean Corpuscular HGB Conc 34.6 g/dL (31.6-35.5); Mean Corpuscular Hemoglobin 30.4 pg (28.0-33.3); Mean Platelet Volume 9.7 fL (9.4-12.4); Monocytes % 5.5 %; Neutrophils # 14.8 K/mcL (1.6-8.9); Platelet Count 209 K/mcL (140-400); Red Cell Distribution Width 13.1 % (11.5-14.5); Segmented Neutrophils % 82.9 %
[2018-01-21 06:12] LABS: BUN/Creatinine Ratio 11 (6-26); Blood Urea Nitrogen 8 mg/dL (6-20); Calcium 9.1 mg/dL (8.6-10.3); Carbon Dioxide 21 mEq/L (23-29); Chloride 108 mEq/L (98-107); Glucose 122 mg/dL (70-105); Osmolality,Calculated 282 (280-300); Potassium 3.7 mEq/L (3.5-5.1); Sodium 136 mEq/L (136-145); eGFR For Non-African Americans > 60 (> 60)
[2018-01-21] MEDS: Nicotine 21 MG PATCH.TD24 TD SCH (09:07)
--- NOTE | 2018-01-21 10:05 | Orthopedics Progress Note ---
Date of Encounter: 01/21/18 Time of Encounter: 10:04 Subjective Interval history: Patient seen this morning, reports right hip doing better. Patient not complaining of left hip pain. Right hip aspiration negative for bacteria positive for weight blood cells. Patient with positive STD screen, could have a relationship. Patient has BEATRIZ drain in the right hip, we will obtain an MRI examination left hip. Plan is for continued conservative management. Objective Vital signs: Vital Signs Temp Pulse Resp BP Pulse Ox 01/21/18 07:04 98.2 F 91 14 142/88 96 01/21/18 05:38 98.5 F 121 18 134/94 98 01/21/18 05:06 98.9 F 117 17 166/123 94 01/20/18 23:16 97.6 F 85 16 130/80 96 01/20/18 20:20 97 01/20/18 18:20 97.9 F 87 16 132/84 97 01/20/18 16:16 98.3 F 94 18 114/75 95 01/20/18 14:59 110 16 139/91 94 01/20/18 14:50 92 132/80 94 01/20/18 11:20 98.4 F 82 18 129/83 98 Intake and Output 01/20/18 01/21/18 01/21/18 23:59 07:59 15:59 Intake Total 1472 / 1472 350 / 350 Output Total 675 / 675 225 / 225 5 / 5 Balance 797 / 797 125 / 125 -5 / -5 Intake: IV Fluids 1232 / 1232 350 / 350 0.9 % Sodium Chloride 1,000 ML 882 / 882 @ 100 mls/hr IVC .Q10H [facility] Rx#: [id number] Zosyn 3.375 GM In 0.9 % Sodium 100 / 100 100 / 100 Chloride (Mini-Bag +) 100 ML @ 25 mls/hr IVPB Q8HR [facility]AG[facility] Rx#: [id number] Vancocin 1,500 MG In 0.9 % 250 / 250 250 / 250 Sodium Chloride 250 ML @ 166.67 mls/hr IVPB Q12H [facility] Rx#: [id number] Oral 240 / 240 Output: Urine 600 / 600 200 / 200 Wound Drainage 75 / 75 25 / 25 5 / 5 Right Hip 75 / 75 25 / 25 5 / 5 Other: # Voids 1 Weight 96.4 kg Patient Weight 01/21/18 23:59 Weight 96.4 kg - Labs CBC & BMP: 01/21/18 05:38 01/21/18 05:38 Labs: Abnormal lab results WBC 17.8 K/mcL (4.3-11.1) H 01/21/18 05:38 Neutrophils # 14.8 K/mcL (1.6-8.9) H 01/21/18 05:38 ESR 26 mm/hr (0-10) H 01/20/18 02:25 PT 13.7 Seconds (9.4-12.1) H 01/20/18 08:49 Chloride 108 mEq/L (98-107) H 01/21/18 05:38 Carbon Dioxide 21 mEq/L (23-29) L 01/21/18 05:38 Glucose 122 mg/dL (70-105) H 01/21/18 05:38 C-Reactive Protein 22 mg/L (Less than 10) H 01/20/18 02:25 Ur Leukocyte Esterase Small (Negative) H 01/20/18 03:24 Urine Microscopic RBC 3-5 per hpf (0-3) H 01/20/18 03:24 Urine Microscopic WBC 5-15 per hpf (0-3) H 01/20/18 03:24 Ur Squamous Epith Cells Moderate per lpf (None-Few) H 01/20/18 03:24 Ur Culture Indicated? YES (NO) A 01/20/18 03:24 Synovial Appearance Cloudy (Clear-Hazy) A 01/20/18 15:00 Synovial RBC 0.003 M/mcl (0.000-0.002) H 01/20/18 15:00 Synovial Tot Nuc Cell 19915 TNC/mcL (0-200) H 01/20/18 15:00 Ur C. trach DNA (PCR) DETECTED (Not Detect) A 01/20/18 14:10 Consult Discharge Plan - Plan Referrals: NONE,PCP [Primary Care Provider] -
[2018-01-21 10:10] LABS: Amphetamine Screen,Urine Negative ng/mL (Cutoff=1000); Barbiturate Screen,Urine Negative ng/mL (Cutoff=200); Benzodiazepines Screen,Urine Negative ng/mL (Cutoff=200); Cannabinoid Screen,Urine Negative ng/mL (Cutoff = 50); Cocaine Screen,Urine Negative ng/mL (Cutoff= 300); Opiate Screen,Urine Negative ng/mL (Cutoff=300); Phencyclidine Screen,Urine Negative ng/mL (Cutoff=25)
--- NOTE | 2018-01-21 14:24 | Internal Med Progress Note ---
Hospitalist Progress Note - Encounter Date of Encounter: 01/21/18 Time of Encounter: 11:24 - Subjective Interval History: Patient has no complaints. Drain has 100 ml purulent drainage. - Exam Vitals: Temp Pulse Resp BP Pulse Ox 98.3 F 104 14 127/85 95 01/21/18 11:15 01/21/18 11:15 01/21/18 11:15 01/21/18 11:15 01/21/18 11:15 Exam: Pt is AAO x 3, in acute pain HEENT: NC/AT, PERRL Neck: Supple, no JVD, no LAD Lungs: CTA b/l Heart: S1S2, RRR, tachycardia Abd: Soft, nontender, BS present Ext: Right hip ROM limited due to pain, no pedal edema Neuro: No focal deficit - Assessment and Plan (1) Septic arthritis Current Visit: Yes Status: Suspected Assessment and Plan: Patient has history of IV drug use. Has right hip pain with CT suggestive of septic arthritis. Has fever and leukocytosis. - Orthopedic consult appreciated - IR aspiration for fluid analysis: obtained, WBC 36k has right hip drain placed 01/20, Chlamydia PCR positive, will start Doxycyline, possibly reactive arthritis instead. ID consulted, recommendations appreciated. (2) Sepsis Current Visit: Yes Status: Acute Assessment and Plan: See above (3) Hx of intravenous drug use, in remission Current Visit: Yes Status: Acute (4) Tobacco abuse Current Visit: Yes Status: Acute (5) DVT prophylaxis Current Visit: Yes Status: Acute - Time Spent with Patient Total time spent is greater than 50% in coordination of care (as documented) at patient's floor/unit and/or counseling patient: Internal Medicine: Result - Labs CBC & Chem 7: 01/21/18 05:38 01/21/18 05:38 Labs: Short CBC 01/21/18 Range/Units 05:38 WBC 17.8 H (4.3-11.1) K/mcL Hgb 14.0 (12.9-16.9) g/dL Hct 40.5 (37.5-50.1) % Plt Count 209 (140-400) K/mcL Neutrophils # 14.8 H (1.6-8.9) K/mcL BMP 01/21/18 05:38 Sodium 136 Potassium 3.7 Chloride 108 H Carbon Dioxide 21 L BUN 8 Creatinine 0.73 Glucose 122 H Calcium 9.1 - ABG Interpretation ABG results: PT/INR, D-dimer PT 13.7 Seconds (9.4-12.1) H 01/20/18 08:49 - Impressions Impressions Needle Aspiration CT 01/20/18 00:00 IMPRESSION: Successful CT guided placement of right hip abscess drainage catheter. D/ / Anastacio Duncan MD / Anastacio Duncan MD Interpreting Provider: Anastacio Duncan MD Consult Discharge Plan - Plan Referrals: NONE,PCP [Primary Care Provider] - (1) Septic arthritis Qualifiers: Septic arthritis location: hip Septic arthritis organism: due to unspecified organism Laterality: right Qualified Code(s): M00.9 - Pyogenic arthritis, unspecified (2) Sepsis Qualifiers: Sepsis type: methicillin resistant Staphylococcus aureus Qualified Code(s): A41.02 - Sepsis due to Methicillin resistant Staphylococcus aureus
--- NOTE | 2018-01-21 15:05 | Rheumatology Consult Note ---
<ArleneMontez Roxann - Last Filed: 01/21/18 16:03> Date of Encounter: 01/21/18 Time of Encounter: 15:03 Rheumatology Assess and Plan (1) Monoarticular arthritis Current Visit: Yes Status: Acute Patient has pain in right hip May be 2/2 septic arthritis vs reactive arthritis CT with subtle erosive changes in right acetabulum Arthrocentesis positive for 36K total nucleated cells, no crystals Positive chlamydia PCR Will order uric acid, HLA-B27, RF, anti-CCP, NAZARIO Patient on toradol Recommend starting naproxen 500 mg TID until blood culture results to see how patient responds - may need to be discharged with NSAIDS until he can be seen in office (2) Positive Chlamydia PCR Current Visit: Yes Status: Acute Followed by infectious disease Patient on vancomycin and zosyn, will start doxycycline today WBC 16.3 > 17.8 today Patient has history of IV drug use - possibility for septic arthritis (3) Tobacco abuse Current Visit: Yes Status: Acute Management per primary team 1/2 PPD smoker On nicotine patch Rheumatology HPI Consult date: 01/21/18 Requesting physician: Bettye Flores Consult reason: Reactive arthritis Chief complaint: Rip hip pain History of present illness: Mr. Perez is a 37 year old male with no known PMHx of presented to [facility] 01/20/18 for evaluation of right hip pain. Rheumatology was consulted for possibility of reactive arthritis. In ED, patient was febrile at 100.7, tachycardic, WBC of 16.3, CRP 22, ESR 26, and lactate 1.6. Patient had hip CT which showed erosive changes in right acetabulum and joint effusion. Right hip arthrocentesis was positive for 36,000 total nucleated cells without crystals. Patient had wound drain placed in right hip. Patient's drug screen was negative, but he had a positive urine chlamydia PCR. Patient was started on doxycycline, vancomycin, and zosyn. Patient seen and examined today. He reports that he was punting a football on Thursday (01/17/18), and noticed mild right hip pain the following day. Patient states the pain was maily located in his right groin, but radiated around the outside of his hip. The pain was constant, throbbing, and worse with movement. It became progressively worse, until he was forced to walk with a limp due to the pain. Patient reports he had pain similar to this in May of this year and was given motrin for suspected sciatica. He states his pain at that time lasted about 3 months. Patient denies other joint pain, blurred vision, MCKINNEY, chest pain, SOB, nausea/vomiting, abdominal pain, changes in bowel/bladder habits, pain with urination. Patient reports he had an appendectomy about 15 years ago. He drinks a few times a year. He admits to history of IV drug use, but states he stopped about 5 months ago. He smokes 1/2 PPD. Patient denies family history of auto-immune issues or joint/hip problems. Past Med Surg Social Fam HX - Past Medical History Medical history: no medical history Psychiatric history: no psych history - Past Surgical History Surgical History: appendectomy - Social History Smoking Status: Never smoker Smokeless Tobacco Status: No Alcohol use: none Drug use: IV Drug Use - Family History Mother History Unknown: Yes Medications and Allergies No Known Home Drugs 01/20/18 [History] Allergy/AdvReac Type Severity Reaction Status Date / Time No Known Allergies Allergy Verified 01/20/18 01:39 All Systems Review: The remainder of the systems were reviewed and are negative Rheumatology Exam Vital Signs, Last 4 Hours Temp Pulse Resp BP Pulse Ox 01/21/18 11:15 98.3 F 104 14 127/85 95 Exam: Constitutional: temp 98.3, HR 104, BP 127/85, in no acute distress Eyes: normal conjunctiva without injection, PERRLA Neck: no masses appreciated, trachea midline Respiratory: clear to auscultation bilaterally with diminished breath sounds, no accessory muscle use Cardiovascular: heart is tachycardic, regular rhythm without murmurs, pedal pulses +2/4 bilaterally Abdomen: non-tender to palpation, no hepatosplenomegaly Musculoskeletal: right hip joint tender to palpation, no crepitation, right hip BEATRIZ drain intact with yellow liquid in bulb, right hip range of motion limited (due to pain) Skin: erythema of right hip joint, no induration Neurologic: sensation of lower extremities intact bilaterally to touch Psychiatric: good insight to condition, A&O x3 Rheumatology Results 01/21/18 05:38 01/21/18 05:38 All other labs normal. Consult Discharge Plan - Plan Referrals: NONE,PCP [Primary Care Provider] - <Michael Hicks W - Last Filed: 01/21/18 17:38> Date of Encounter: 01/21/18 Rheumatology HPI History of present illness: Mr. Perez is a 37 year old male All Systems Review: The remainder of the systems were reviewed and are negative Rheumatology Results 01/21/18 05:38 01/21/18 05:38 Immunology Rheumatoid Factor 13 IU/mL (Less than 14) 01/21/18 16:17 All other labs normal. - Attending Attestation I examined this patient and my medical decision making was reviewed with the resident physician. I agree with the documented findings, disposition and treatment as described with these exceptions. In summary, Elver Perez is a 37-year-old male who presents with worsening right hip pain, fevers found to have monoarthritis. Hip pain in 2017 responded to steroids but eventually resolved in the summer. Worsened over last few days. Inflammatory fluid on arthrocentesis. Gram without bacteria, + WBC. Cultures NGTD. Chlamydia PCR positive. Exam: Small fluctuance to right knee, antalgic gait and pain on right hip. 1) Monoarthritis - Differential includes septic arthritis or autoimmune inflammatory arthritis. Will check HLAB27 in the setting of chlamydia as possible Jolynn. Add RF, CCP, NAZARIO, Uric acid though less likely. Await cultures and treat with NSAIDS. If cultures negative, can consider a course of steroids if NSAIDS not controlling symptoms. Will follow-up tomorrow.
[2018-01-21 16:38] LABS: Uric Acid 3.8 mg/dL (2.3-7.6)
[2018-01-21] MEDS: 0.9 % Sodium Chloride 1,000 ML IVC SCH (17:17)
--- NOTE | 2018-01-21 20:17 | Infectious Disease Consult ---
Date of Encounter: 01/21/18 Time of Encounter: 20:05 Assessment and Plan (1) Positive Chlamydia PCR Status: Acute Assessment and plan: unknown how he got chlamydia dw patient, he will talk to his girlfriend about it, I asked if i can discuss the issue infront of her and he said yes but she wasnt there and I didnt need to gonorrohea checked and negative check HIV and hepatitis profile no signs of proctatis or epydidemitis agree with rocephin/doxycycline will repeat chlamydia testing in 3-6 months (2) Reactive arthritis of right hip Status: Acute Assessment and plan: negative gram stain (arthrocentesis done about 3 hours after administring antibiotics (hopefully that didnt alter results) i think it's reactive due to the chlamydia await cultures to finalize [facility] to see d/w ortho (3) Left hip pain Status: Acute (4) Sepsis Status: Acute Assessment and plan: secondary to reactive arthritis improved Qualifiers: Sepsis type: methicillin resistant Staphylococcus aureus Qualified Code(s): A41.02 - Sepsis due to Methicillin resistant Staphylococcus aureus (5) Tobacco abuse Status: Acute (6) IVDU (intravenous drug user) Status: Acute Assessment and plan: last use 4 months ago will check HIV, hepaitis B and C awaite cultures to finalize Infectious Disease HPI - Data of Consult Patient: new to practice Consult date: 01/21/18 Requesting Physician: Bettye Flores MD Primary Care Provider: PCP NONE - Consult Narrative Reason for consult: septic arthritis History of present illness: Mr. Perez is a 37 year old male with past medical history mentioned below presented to [facility] on 01/19 with right hip pain, we are consulted today for septic arthritis. patient with no past medical history who was in the usual state of health until a few days prior to admission when he was playing football and started having right hip pain. pain was sudden. no alleviating or aggrevating factors. pain was non radiating. not shooting down to the lower extremity or back.He thought it was sciatica. Denied any fevers or chills. patient denied any other complaints. patient presented to [facility] for evaluation. Since admission, patient was febrile with Tmax of 100.7F, tachycardic and no tachypnea. presenting labs revealed a WBC of 16.3 with 80% neutrophils and no bands. normal chemistry and normal lactic acid. Patient had an arthrocentesis which revealed 89953 nucleated cells with 90% neutrophils. gram stain was negative and culture no growth to date. blood cultures were also obained and it was negative to date. CT guided aspiration of the hip obtained and Successful CT guided placement of right hip abscess drainage catheter. patient had a gonorrhea and chlamydia pcr done, gonorrhea was negative but chlamydia urine pcr was positive. patient was started on vancomycin and zosyn. patient was also given ceftriaxone and doxycycoine. we were asked to evaluate the patient and make further recommendations. on further questioning. patient with history of IVDU, last used 4 months ago. He is with his most recent girlfriend for the last year and he is faithful. he denies history of STD's patient only has sex with women. Patient denies any testicular pain, no urtheral discharge and no pain on defecation. denies any lymphodenapathy. no visual changes. CC: Bettye Flores MD Past Med Surg Social Fam HX - Past Medical History Medical history: no medical history Psychiatric history: no psych history - Past Surgical History Surgical History: appendectomy - Social History Smoking Status: Never smoker Smokeless Tobacco Status: No Alcohol use: none Drug use: IV Drug Use - Family History Mother History Unknown: Yes Infectious Disease-CN:Meds No Known Home Drugs 01/20/18 [History] Allergy/AdvReac Type Severity Reaction Status Date / Time No Known Allergies Allergy Verified 01/20/18 01:39 All systems: reviewed and no additional remarkable complaints except as stated Review of systems: what's mentioned in the HPI Exam - Constitutional Vitals: Temp Pulse Resp BP Pulse Ox 97.9 F 105 16 170/105 96 01/21/18 18:52 01/21/18 18:52 01/21/18 18:52 01/21/18 18:52 01/21/18 18:52 General appearance: cooperative, no acute distress, no febrile - Head Head exam: Present: atraumatic, normocephalic - Eye Eye exam: Present: EOMI, PERRL, sclera anicteric - ENT ENT exam: Present: mucous membranes moist, normal exam - Neck Neck exam: Present: full ROM. Absent: meningismus - Respiratory Respiratory exam: Present: CTAB. Absent: wheezes - Cardiovascular Cardiovascular exam: Present: RRR, +S1, +S2 - GI/Abdominal GI/Abdominal exam: Present: normal bowel sounds, soft. Absent: tenderness - Extremities Exam Extremities exam: Present: full ROM Additional comments: drain right hip intact. pain in the left hip with pain on passive movement but without erythema or edema. - Neurological Exam Neurological exam: Present: alert, oriented X3 Additional comments: he appears to have a facial tick - Psychiatric Psychiatric exam: Present: normal affect, normal mood - Skin Skin exam: Present: normal color. Absent: rash Infectious Disease CN: Results - Labs CBC & Chem 7: 01/21/18 05:38 01/21/18 05:38 Cultures: Cultures 01/20/18 15:00 Body Fluid Culture - Preliminary Synovial Fluid 01/20/18 03:24 Urine Culture - Final Urine,Clean Catch No significant growth. 01/20/18 05:04 Blood Culture - Preliminary Peripheral Venipuncture Culture is incubating and being continuously monitored for growth. Final report to follow. 01/20/18 02:25 Blood Culture - Preliminary Peripheral Venipuncture Culture is incubating and being continuously monitored for growth. Final report to follow. Serology: Serology 01/20/18 01/20/18 01/20/18 Range/Units 15:00 15:00 14:10 Urine Color (Yellow) Urine Clarity (Clear) Urine pH (5.0-8.0) pH Units Ur Specific [place] (1.010-1.025) Urine Protein (Neg-Trace) mg/dL Urine Glucose (UA) (Normal) mg/dL Urine Ketones (Negative) mg/dL Urine Blood (Negative) Urine Nitrite (Negative) Urine Bilirubin (Negative) Urine Urobilinogen (Normal) mg/dL Ur Leukocyte Esterase (Negative) Urine Microscopic RBC (0-3) per hpf Urine Microscopic WBC (0-3) per hpf Ur Squamous Epith Cells (None-Few) per lpf Urine Bacteria (None-Few) per hpf Hyaline Casts (None-Few) per lpf Ur Culture Indicated? (NO) Synovial Source right hip Synovial Color Straw (Straw) Synovial Appearance Cloudy A (Clear-Hazy) Synovial Volume 8.0 mL Synovial RBC 0.003 H (0.000 - 0.002) M/mcl Synovial Tot Nuc Cell 35329 H (0-200) TNC/mcL Synovial Band Neuts 1.0 % Synovial Basophils Test Not Performed Synovial Eosinophils Test Not Performed Synovial Seg Neuts % 90.0 % Synovial Lymphocytes % 5.0 % Synovial Monocytes % 3.0 % Synovial Other Cells % 1.0 % Synovial Crystals No Crystals Seen (None Seen) Synovial Total Protein 5.1 (No Ref Range) g/dL Ur C. trach DNA (PCR) DETECTED A (Not Detect) U N.gonorrhoeae DNA PCR NOT DETECTED (Not Detect) 01/20/18 Range/Units 03:24 Urine Color Yellow (Yellow) Urine Clarity Clear (Clear) Urine pH 5.5 (5.0-8.0) pH Units Ur Specific [place] 1.017 (1.010-1.025) Urine Protein Negative (Neg-Trace) mg/dL Urine Glucose (UA) Normal (Normal) mg/dL Urine Ketones Negative (Negative) mg/dL Urine Blood Negative (Negative) Urine Nitrite Negative (Negative) Urine Bilirubin Negative (Negative) Urine Urobilinogen Normal (Normal) mg/dL Ur Leukocyte Esterase Small H (Negative) Urine Microscopic RBC 3-5 H (0-3) per hpf Urine Microscopic WBC 5-15 H (0-3) per hpf Ur Squamous Epith Cells Moderate H (None-Few) per lpf Urine Bacteria None Seen (None-Few) per hpf Hyaline Casts None Seen (None-Few) per lpf Ur Culture Indicated? YES A (NO) Synovial Source Synovial Color (Straw) Synovial Appearance (Clear-Hazy) Synovial Volume mL Synovial RBC (0.000 - 0.002) M/mcl Synovial Tot Nuc Cell (0-200) TNC/mcL Synovial Band Neuts % Synovial Basophils Synovial Eosinophils Synovial Seg Neuts % % Synovial Lymphocytes % % Synovial Monocytes % % Synovial Other Cells % % Synovial Crystals (None Seen) Synovial Total Protein (No Ref Range) g/dL Ur C. trach DNA (PCR) (Not Detect) U N.gonorrhoeae DNA PCR (Not Detect) Consult Discharge Plan - Plan Referrals: NONE,PCP [Primary Care Provider] -
[2018-01-21] MEDS: Doxycycline 100 MG in 0.9 % Sodium Chloride Mini Bag 100 ML IVPB SCH (21:50)
[2018-01-22] MEDS: OXYCODONE Oral CONC 10 MG/0.5 ML ORAL.SYG SL PRN ×2 (01:28→09:00)
[2018-01-22 04:55] LABS: Amphetamine Screen,Urine Positive ng/mL (Cutoff=1000); Barbiturate Screen,Urine Negative ng/mL (Cutoff=200); Benzodiazepines Screen,Urine Negative ng/mL (Cutoff=200); Cannabinoid Screen,Urine Negative ng/mL (Cutoff = 50); Cocaine Screen,Urine Negative ng/mL (Cutoff= 300); Opiate Screen,Urine Positive ng/mL (Cutoff=300); Phencyclidine Screen,Urine Negative ng/mL (Cutoff=25)
[2018-01-22] MEDS: *HR* Heparin 5,000 UNIT/ML VIAL SQ SCH (05:03)
--- NOTE | 2018-01-22 05:51 | Event Note ---
Date of Encounter: 01/22/18 Time of Encounter: 01:09 Alerted by pts. nurse Genie RN dallin the pt. had been unhooking himself from his IV fluids. Nurse stated that she educated the pt. regarding the dangers of disconnecting IV lines. Pt. would express understanding and remain uncompliant. Pt. had also requested to leave unit to smoke. Pt. was told he could not leave the hospital with IV access. Pt. then wanted to leave unit for snacks. Reviewed pts. chart which showed hx of positive IV drug use. On admission, pt. reported that he has not used IV drugs for approximately 5 months. Urine tox screen on 01/21 was negative. Concern for pt. unhooking IV repeatedly d/t IV drug abuse hx and possible drug abuse while inpatient here. Repeat urine tox screen ordered today which was positive for opiates and amphetamines. Pt. had received oxycodone while inpatient but no amphetamines. Instructed nurse that pt. should not leave the unit w/IV access intact. Nurse instructed to monitor pt. and his SO who is present for any activity which may suggest drug use and notify provider and security as appropriate.
[2018-01-22 05:55] LABS: HIV-1&2 Antibody & p24 Ag Nonreactive (Nonreactive); Hepatitis B Surface Antigen Nonreactive (Nonreactive)
--- NOTE | 2018-01-22 06:41 | Orthopedics Progress Note ---
Date of Encounter: 01/22/18 Time of Encounter: 06:38 Subjective Interval history: Patient seen this morning resting comfortably. MRI reviewed possibly significant involvement of the right hip. Also concern for lumbar involvement. We will obtain a lumbar MRI. Patient may require transfer to tertiary facility for complete care. Left hip negative for involvement. Objective Vital signs: Vital Signs Temp Pulse Resp BP Pulse Ox 01/22/18 03:46 98.7 F 106 15 156/94 96 01/22/18 00:48 98.1 F 85 15 111/73 93 01/21/18 20:05 96 01/21/18 18:52 97.9 F 105 16 170/105 96 01/21/18 11:15 98.3 F 104 14 127/85 95 01/21/18 07:04 98.2 F 91 14 142/88 96 Intake and Output 01/21/18 01/21/18 01/22/18 15:59 23:59 07:59 Intake Total 100 / 100 1340 / 1340 Output Total 5 / 5 0 / 0 50 / 50 Balance 95 / 95 1340 / 1340 -50 / -50 Intake: IV Fluids 100 / 100 1100 / 1100 0.9 % Sodium Chloride 1,000 ML 1000 / 1000 @ 100 mls/hr IVC .Q10H [facility] Rx#: [id number] Doxycycline 100 MG In 0.9 % 100 / 100 Sodium Chloride (Mini-Bag +) 100 ML @ 100 mls/hr IVPB Q12H [facility]IAGO Rx#:[id number] Zosyn 3.375 GM In 0.9 % Sodium 100 / 100 Chloride (Mini-Bag +) 100 ML @ 25 mls/hr IVPB Q8HR [facility]IAGO Rx#: [id number] Oral 240 / 240 Output: Wound Drainage 5 / 5 0 / 0 50 / 50 Right Hip 5 / 5 0 / 0 50 / 50 Other: Meal Dinner Percent of Meal Consumed 100% # Voids 1 2 - Labs CBC & BMP: 01/21/18 05:38 01/21/18 05:38 Labs: Abnormal lab results WBC 17.8 K/mcL (4.3-11.1) H 01/21/18 05:38 Neutrophils # 14.8 K/mcL (1.6-8.9) H 01/21/18 05:38 ESR 26 mm/hr (0-10) H 01/20/18 02:25 PT 13.7 Seconds (9.4-12.1) H 01/20/18 08:49 Chloride 108 mEq/L (98-107) H 01/21/18 05:38 Carbon Dioxide 21 mEq/L (23-29) L 01/21/18 05:38 Glucose 122 mg/dL (70-105) H 01/21/18 05:38 C-Reactive Protein 22 mg/L (Less than 10) H 01/20/18 02:25 Ur Leukocyte Esterase Small (Negative) H 01/20/18 03:24 Urine Microscopic RBC 3-5 per hpf (0-3) H 01/20/18 03:24 Urine Microscopic WBC 5-15 per hpf (0-3) H 01/20/18 03:24 Ur Squamous Epith Cells Moderate per lpf (None-Few) H 01/20/18 03:24 Ur Culture Indicated? YES (NO) A 01/20/18 03:24 Synovial Appearance Cloudy (Clear-Hazy) A 01/20/18 15:00 Synovial RBC 0.003 M/mcl (0.000-0.002) H 01/20/18 15:00 Synovial Tot Nuc Cell 68161 TNC/mcL (0-200) H 01/20/18 15:00 Urine Opiates Screen Positive ng/mL (Robvys=[id number]) H 01/22/18 04:21 Ur Amphetamines Screen Positive ng/mL (Zcckjv=[id number]) H 01/22/18 04:21 Ur C. trach DNA (PCR) DETECTED (Not Detect) A 01/20/18 14:10 Consult Discharge Plan - Plan Referrals: NONE,PCP [Primary Care Provider] -
[2018-01-22 06:52] LABS: Basophils % 0.5 %; Eosinophils # 0.1 K/mcL (0.0-0.6); Hematocrit 37.7 % (37.5-50.1); Hemoglobin 12.9 g/dL (12.9-16.9); Immature Granulocytes % 0.3 % (0-4); Lymphocytes # 2.1 K/mcL (0.6-4.6); Lymphocytes % 27.8 %; Mean Corpuscular HGB Conc 34.2 g/dL (31.6-35.5); Mean Corpuscular Hemoglobin 30.2 pg (28.0-33.3); Mean Corpuscular Volume 88.3 fL (83.0-100.0); Monocytes # 0.7 K/mcL (0.0-1.3); Monocytes % 8.6 %; Neutrophils # 4.8 K/mcL (1.6-8.9); Platelet Count 182 K/mcL (140-400); Red Blood Count 4.27 M/mcL (4.19-5.50); Red Cell Distribution Width 13.1 % (11.5-14.5); Segmented Neutrophils % 61.8 %
[2018-01-22 07:03] LABS: Alanine Aminotransferase 17 Units/L (7-52); Albumin/Globulin Ratio 1.4 (1.1-2.2); Alkaline Phosphatase 42 Units/L (34-104); Aspartate Amino Transferase 49 Units/L (13-39); BUN/Creatinine Ratio 10 (6-26); Bilirubin,Total 0.4 mg/dL (0.3-1.0); Blood Urea Nitrogen 8 mg/dL (6-20); Calcium 9.1 mg/dL (8.6-10.3); Carbon Dioxide 17 mEq/L (23-29); Chloride 111 mEq/L (98-107); Globulin 2.9 g/dL (2.4-3.5); Glucose 92 mg/dL (70-105); Osmolality,Calculated 290 (280-300); Sodium 141 mEq/L (136-145); Total Protein 6.9 g/dL (6.4-8.9); eGFR For Non-African Americans > 60 (> 60)
[2018-01-22] MEDS ORDERED: *HR* LORazepam 2 MG/ML VIAL IVP ONE (07:21)
[2018-01-22] MEDS: Nicotine 21 MG PATCH.TD24 TD SCH (08:19)
[2018-01-22] MEDS: Doxycycline 100 MG in 0.9 % Sodium Chloride Mini Bag 100 ML IVPB SCH (08:19)
--- NOTE | 2018-01-22 09:01 | Discharge Summary ---
- NOTES TO OUTPATIENT PROVIDER Notes to Outpatient Provider: - Recommend MRI Lumbar spine. - Recommend Ortho and ID consult. - Follow-up final aspiration fluid cultures. - Follow-up rheum labs. Orders not resulted at time of discharge: Pending orders 01/20/18 05:04 Culture,Blood [BC] Stat 01/20/18 15:00 Culture,Anaerobic [RM] Routine Culture,Body Fluid [RM] Stat 01/21/18 09:58 Chlamydia Antibody Panel, IgG Stat Chlamydia Antibody Panel, IgM Stat 01/21/18 16:17 NAZARIO w HEp-2 Substrate,IgG IFA Routine CCP IgG Routine HLA-B27 Routine 01/21/18 19:05 Chlamydia trachomatis culture Stat 01/22/18 06:41 MR lumbar spine wo/w con [MR] Stat 01/23/18 04:00 CBC [Complete Blood Count] [HEME] AM 0400 CMP [Comprehensive Metabolic Panel] AM 0400 01/24/18 04:00 CBC [Complete Blood Count] [HEME] AM 0400 CMP [Comprehensive Metabolic Panel] AM 0400 01/25/18 04:00 CBC [Complete Blood Count] [HEME] AM 0400 CMP [Comprehensive Metabolic Panel] AM 0400 Date of Encounter: 01/22/18 Time of Encounter: 08:57 - Discharge Diagnosis (1) Septic arthritis Priority: Secondary Status: Suspected Qualifiers: Septic arthritis location: hip Septic arthritis organism: due to unspecified organism Laterality: right Qualified Code(s): M00.9 - Pyogenic arthritis, unspecified (2) Sepsis Priority: Primary Status: Acute Qualifiers: Sepsis type: methicillin resistant Staphylococcus aureus Qualified Code(s): A41.02 - Sepsis due to Methicillin resistant Staphylococcus aureus (3) Hx of intravenous drug use, in remission Priority: Secondary Status: Acute (4) Tobacco abuse Priority: Secondary Status: Acute (5) DVT prophylaxis Priority: Secondary Status: Acute Hospital course: Mr. Perez is a 37 year old male presented to ER for right hip pain. Past medical history is significant for history of IV drug use, tobacco abuse. Patient started having pain on 01/18/18, which has progressively worsened to the point to the point of trouble walking. Patient has fever with temperature 100.7, has chills. Patient denies other joint pain or swelling. Patient has mild nausea but no vomiting. In the emergency room, patient was found leukocytosis. Patient met sepsis criteria on admission, WBC 16k, febrile, tachycardic. This was improving prior to transfer. CT right hip shows suspected septic arthritis. Patient was placed on IV fluid and Vancomycin and Zosyn and admitted for further management. IR was consulted and patient had ultrasound guided BEATRIZ drain placed in right hip joint on 01/20. Aspiration was negative for bacteria, but positive for white blood cells of 36k. He had a positive Chlamydia PCR and there was suspicion of reactive arthritis. Doxycycline was started. Orthopedic Surgery, ID, and later Rheumatology were consulted. RF, HLAB27, EF< CCP, NAZARIO, Uric acid were ordered. An MRI of both hips done. This showed possibly significant involvement of the right hip and also concern for lumbar involvement of discitis/osteomyelitis. An MRI of lumbar spine was ordered for follow-up. - Time Spent with Patient Total time spent providing and/or coordinating discharge services: - Discharge Medications Home Medications: Acetaminophen [Tylenol] 650 mg PO Q6HR PRN tablet 01/22/18 [Rx] Heparin 5,000 unit SQ Q12HCO vial 01/22/18 [Rx] Nicotine Patch [Nicoderm] 21 mg TD DAILY patch.td24 01/22/18 [Rx] hydrALAZINE [HydrALAZINE] 10 mg IVP Q6H PRN vial 01/22/18 [Rx] Allergies/Adverse Reactions: Allergy/AdvReac Type Severity Reaction Status Date / Time No Known Allergies Allergy Verified 01/20/18 01:39 Date of admission: 01/20/18 04:26 Primary care physician: PCP NONE Consults: 01/20/18 04:02 Consult to Interventional Radiology [CONS] Stat Consulting Provider: Radiology [facility] Reason for Consult: Septic arthritis Call Completed: No Consult to Orthopedic Surgery [CONS] Stat Consulting Provider: Orthopedics [facility] Reason for Consult: septic arthritis Call Completed: No 01/20/18 11:30 Consult to [employer] [CONS] Routine Reason for SW Consult: DISCHARGE PLANNING 01/21/18 10:14 Consult to Physician [CONS] Routine Consulting Provider: Sariah Russ Reason for Consult: RIGHT HIP INFECTION Call Completed: Yes 01/21/18 14:24 Consult to Infectious Diseases [CONS] Routine Consulting Provider: Infectious Disease A[facility]se Reason for Consult: reactive arthritis Call Completed: Yes Consult to Rheumatology [CONS] Routine Consulting Provider: Michael Hicks Reason for Consult: Reactive Arthitis Call Completed: Yes Discharging clinician: Bettye Flores - Constitutional Vitals: Temp Pulse Resp BP Pulse Ox 98.6 F 99 16 133/67 97 01/22/18 06:37 01/22/18 06:37 01/22/18 06:37 01/22/18 06:37 01/22/18 08:42 General appearance: Present: A&O X 3, no acute distress, answers questions appropriately Exam: Pt is AAO x 3, in acute pain HEENT: NC/AT, PERRL Neck: Supple, no JVD, no LAD Lungs: CTA b/l Heart: S1S2, RRR, tachycardia Abd: Soft, nontender, BS present Ext: Right hip ROM limited due to pain, no pedal edema BEATRIZ drain dressing clean, dry intact. Neuro: No focal deficit - Patient Status Disposition: Transfer Critical Access Hosp Condition: Good Functional capacity at discharge: independent ambulation Overall status at discharge: patient is not back to baseline - Discharge Instructions Follow Up With: NONE,PCP [Primary Care Provider] - - Diet and Activity Activity: as per physical therapy Diet: advance to your usual diet
--- NOTE | 2018-01-22 09:14 | Event Note ---
Date of Encounter: 01/22/18 Time of Encounter: 09:14 Patient was seen and examined today prior to transfer. Patient was standing up, states that he continues to have right hip pain although some what decreased from initial onset. Patient is aware that he is to be transferred to [facility] regarding diagnosis of osteomyelitis of the right hip and lower back. Patient states that he is amicable to this transfer. Patient also states that he does not have a primary care provider, and states that he will need one when he is discharged. Overnight, there was reports of patient walking around the room, and unhooking his IV. A urinalysis drug screen was obtained which was positive for opioids and amphetamines. I did discuss this finding with the patient, he adamantly declined any recent use of amphetamines. We did discuss the fact that he was given an opioid for pain management while in the hospital. Patient states that he is currently in a rehabilitation type facility and program. He states that he does have history of amphetamine use, however he has not used anything for the past 3-4 months. Patient has no questions at this time regarding disposition.
--- NOTE | 2018-01-22 09:34 | Rheumatology Progress Note ---
<Montez Jacobs - Last Filed: 01/22/18 09:35> Date of Encounter: 01/22/18 Time of Encounter: 09:00 Rheumatology Assess and Plan (1) Monoarticular arthritis Status: Acute Patient has pain in right hip May be 2/2 septic arthritis vs reactive arthritis CT with subtle erosive changes in right acetabulum Arthrocentesis positive for 36K total nucleated cells, no crystals Positive chlamydia PCR Ordered HLA-B27, anti-CCP, NAZARIO RF 13 Uric acid 3.8 Patient on toradol Recommend starting naproxen 500 mg TID until blood culture results to see how patient responds - may need to be discharged with NSAIDS until he can be seen in office Right hip MRI showed bone marrow edema and osseous erosions in femoral head and acetabulum with concern for bone marrow edema in L5-S1 endplates - patient to have lumbar MRI for further evaluation Patient had repeat urine drug screen which is now positive for opiates and amphetamines (initially negative on admission) - this increases the likelihood septic arthritis Rheumatology will sign off at this time, thank you for the consult (2) Positive Chlamydia PCR Status: Acute Followed by infectious disease Patient on vancomycin and zosyn, and doxycycline WBC 16.3 > 17.8 > 7.7 today Patient has history of IV drug use (opiate and amphetamine positive drug screen) - possibility for septic arthritis (3) Tobacco abuse Status: Acute Management per primary team 1/2 PPD smoker On nicotine patch - Subjective Interval history: Patient seen this morning. He is doing well and reports his hip pain is much improved today. He is able to walk with only mild difficulty. He denies blurred vision, CP, SOB, abdominal pain, nausea/vomiting, changes in bowel/bladder habits, numbness/tingling. Patient did have a recent urine drug screen positive for opiates and amphetamines, previous urine drug screen on admission was negative. Exam Vital Signs, Last 4 Hours Temp Pulse Resp BP Pulse Ox 01/22/18 08:42 97 01/22/18 06:37 98.6 F 99 16 133/67 97 Exam: Constitutional: temp 98.6, HR 99, BP 133/67, in no acute distress Eyes: normal conjunctiva without injection, PERRLA Neck: no masses appreciated, trachea midline Respiratory: clear to auscultation bilaterally with diminished breath sounds, no accessory muscle use Cardiovascular: heart is RRR without murmurs, pedal pulses +2/4 bilaterally Abdomen: non-tender to palpation, no hepatosplenomegaly Musculoskeletal: right hip joint tender to palpation, no crepitation, improved right hip range of motion from yesterday (due to pain) Skin: improved erythema of right hip, no induration Neurologic: sensation of lower extremities intact bilaterally to touch Psychiatric: good insight to condition, A&O x3 Objective Data 01/22/18 04:53 01/22/18 04:53 Immunology Rheumatoid Factor 13 IU/mL (Less than 14) 01/21/18 16:17 All other labs normal. Consult Discharge Plan - Plan Referrals: NONE,PCP [Primary Care Provider] - <Michael Hicks - Last Filed: 01/22/18 14:57> Date of Encounter: 01/22/18 Objective Data 01/22/18 04:53 01/22/18 04:53 Immunology Rheumatoid Factor 13 IU/mL (Less than 14) 01/21/18 16:17 All other labs normal. - Attending Attestation I examined this patient and my medical decision making was reviewed with the resident physician. I agree with the documented findings, disposition and treatment as described with these exceptions. No fevers overnight. Drain in place. Ambulating. Question of drug use while in hospital. MRI suspicious for infectious process in hip; L spine MR did not show clear montserrat dence for discitis. Monoarthritis - At this time, cultures negative but given MRI findings this cou ld be infectious. He is going to be trasnferred. I will follow-up on labs and will call if abnormal otherwise patient to get further workup and if rheumatology services needed to call our office. Card given.
[2018-01-22 10:40] VITALS: BP 138/86
--- NOTE | 2018-01-22 12:03 | Infectious Disease Progress No ---
Date of Encounter: 01/22/18 Time of Encounter: 09:45 Infect Dis PN-Objective Data - Labs CBC & Chem 7: 01/22/18 04:53 01/22/18 04:53 Labs: Laboratory Results - last 24 hr 01/21/18 01/21/18 01/22/18 16:05 16:17 04:21 WBC RBC Hgb Hct MCV MCH MCHC RDW Plt Count MPV Immature Gran % Seg Neutrophils % Lymphocytes % Monocytes % Eosinophils % Basophils % Neutrophils # Lymphocytes # Monocytes # Eosinophils # Basophils # Sodium Potassium Chloride Carbon Dioxide BUN Creatinine Est GFR ( Amer) Est GFR (Non-Af Amer) BUN/Creatinine Ratio Glucose Calculated Osmolality Uric Acid 3.8 Calcium Total Bilirubin AST ALT Alkaline Phosphatase Serum Total Protein Albumin Globulin Albumin/Globulin Ratio Vancomycin Trough 8 Urine Opiates Screen Positive H Ur Barbiturates Screen Negative Ur Phencyclidine Scrn Negative Ur Amphetamines Screen Positive H U Benzodiazepines Scrn Negative Urine Cocaine Screen Negative U Marijuana (THC) Screen Negative Ur Drug Screen Interp See Below Rheumatoid Factor 13 Hep Bs Antigen Hep Bs Antibody Hep B Core IgM Ab Hepatitis C Ab Screen HIV Ag/Ab Combo Qual 01/22/18 01/22/18 01/22/18 04:53 04:53 04:53 WBC 7.7 D RBC 4.27 Hgb 12.9 Hct 37.7 MCV 88.3 MCH 30.2 MCHC 34.2 RDW 13.1 Plt Count 182 MPV 11.0 Immature Gran % 0.3 Seg Neutrophils % 61.8 Lymphocytes % 27.8 Monocytes % 8.6 Eosinophils % 1.0 Basophils % 0.5 Neutrophils # 4.8 Lymphocytes # 2.1 Monocytes # 0.7 Eosinophils # 0.1 Basophils # 0.0 Sodium 141 Potassium 4.0 Chloride 111 H Carbon Dioxide 17 L BUN 8 Creatinine 0.79 Est GFR ( Amer) > 60 Est GFR (Non-Af Amer) > 60 BUN/Creatinine Ratio 10 Glucose 92 Calculated Osmolality 290 Uric Acid Calcium 9.1 Total Bilirubin 0.4 AST 49 H ALT 17 Alkaline Phosphatase 42 Serum Total Protein 6.9 Albumin 4.0 Globulin 2.9 Albumin/Globulin Ratio 1.4 Vancomycin Trough Urine Opiates Screen Ur Barbiturates Screen Ur Phencyclidine Scrn Ur Amphetamines Screen U Benzodiazepines Scrn Urine Cocaine Screen U Marijuana (THC) Screen Ur Drug Screen Interp Rheumatoid Factor Hep Bs Antigen Nonreactive Hep Bs Antibody 0.50 Hep B Core IgM Ab Hepatitis C Ab Screen HIV Ag/Ab Combo Qual Nonreactive Cultures: Cultures 01/20/18 15:00 Body Fluid Culture - Preliminary Synovial Fluid 01/20/18 03:24 Urine Culture - Final Urine,Clean Catch No significant growth. 01/20/18 05:04 Blood Culture - Preliminary Peripheral Venipuncture Culture is incubating and being continuously monitored for growth. Final report to follow. 01/20/18 02:25 Blood Culture - Preliminary Peripheral Venipuncture Culture is incubating and being continuously monitored for growth. Final report to follow. Serology 01/22/18 01/20/18 01/20/18 Range/Units 04:53 15:00 15:00 Urine Color (Yellow) Urine Clarity (Clear) Urine pH (5.0-8.0) pH Units Ur Specific [place] (1.010-1.025) Urine Protein (Neg-Trace) mg/dL Urine Glucose (UA) (Normal) mg/dL Urine Ketones (Negative) mg/dL Urine Blood (Negative) Urine Nitrite (Negative) Urine Bilirubin (Negative) Urine Urobilinogen (Normal) mg/dL Ur Leukocyte Esterase (Negative) Urine Microscopic RBC (0-3) per hpf Urine Microscopic WBC (0-3) per hpf Ur Squamous Epith Cells (None-Few) per lpf Urine Bacteria (None-Few) per hpf Hyaline Casts (None-Few) per lpf Ur Culture Indicated? (NO) Synovial Source right hip Synovial Color Straw (Straw) Synovial Appearance Cloudy A (Clear-Hazy) Synovial Volume 8.0 mL Synovial RBC 0.003 H (0.000 - 0.002) M/mcl Synovial Tot Nuc Cell [id number] H (0-200) TNC/mcL Synovial Band Neuts 1.0 % Synovial Basophils Test Not Performed Synovial Eosinophils Test Not Performed Synovial Seg Neuts % 90.0 % Synovial Lymphocytes % 5.0 % Synovial Monocytes % 3.0 % Synovial Other Cells % 1.0 % Synovial Crystals No Crystals Seen (None Seen) Synovial Total Protein 5.1 (No Ref Range) g/dL Ur C. trach DNA (PCR) (Not Detect) Hep Bs Antigen Nonreactive (Nonreactive) Hep Bs Antibody 0.50 mIU/mL Hep B Core IgM Ab (Nonreactive) Hepatitis C Ab Screen (Nonreactive) HIV Ag/Ab Combo Qual Nonreactive (Nonreactive) U N.gonorrhoeae DNA PCR (Not Detect) 01/20/18 01/20/18 Range/Units 14:10 03:24 Urine Color Yellow (Yellow) Urine Clarity Clear (Clear) Urine pH 5.5 (5.0-8.0) pH Units Ur Specific [place] 1.017 (1.010-1.025) Urine Protein Negative (Neg-Trace) mg/dL Urine Glucose (UA) Normal (Normal) mg/dL Urine Ketones Negative (Negative) mg/dL Urine Blood Negative (Negative) Urine Nitrite Negative (Negative) Urine Bilirubin Negative (Negative) Urine Urobilinogen Normal (Normal) mg/dL Ur Leukocyte Esterase Small H (Negative) Urine Microscopic RBC 3-5 H (0-3) per hpf Urine Microscopic WBC 5-15 H (0-3) per hpf Ur Squamous Epith Cells Moderate H (None-Few) per lpf Urine Bacteria None Seen (None-Few) per hpf Hyaline Casts None Seen (None-Few) per lpf Ur Culture Indicated? YES A (NO) Synovial Source Synovial Color (Straw) Synovial Appearance (Clear-Hazy) Synovial Volume mL Synovial RBC (0.000 - 0.002) M/mcl Synovial Tot Nuc Cell (0-200) TNC/mcL Synovial Band Neuts % Synovial Basophils Synovial Eosinophils Synovial Seg Neuts % % Synovial Lymphocytes % % Synovial Monocytes % % Synovial Other Cells % % Synovial Crystals (None Seen) Synovial Total Protein (No Ref Range) g/dL Ur C. trach DNA (PCR) DETECTED A (Not Detect) Hep Bs Antigen (Nonreactive) Hep Bs Antibody mIU/mL Hep B Core IgM Ab (Nonreactive) Hepatitis C Ab Screen (Nonreactive) HIV Ag/Ab Combo Qual (Nonreactive) U N.gonorrhoeae DNA PCR NOT DETECTED (Not Detect) - Impressions Impressions Hip MRI 01/21/18 06:22 IMPRESSION: Abnormal edema is identified within the iliopsoas muscle, with a small amount of perimuscular edema and fluid. This is a nonspecific finding, and may represent low-grade muscle strain or tearing. However, inflammatory or infectious myositis must also be considered, especially given the contralateral findings. Minimal edema within trochanteric bursa, raising the possibility of mild bursitis. D/ / Tapan Villareal MD / Tapan Villareal MD Interpreting Provider: Tapan Villareal MD Hip MRI 01/21/18 06:25 IMPRESSION: Articular drain in place, with a small to moderate amount of residual fluid and debris, compatible with septic arthritis. Bone marrow edema is identified in the posterior femoral head neck, as well as within the acetabulum, nonspecific but most compatible with osteomyelitis. Osseous erosions, especially within the femoral head posteriorly and within the acetabulum posteriorly. Associated focal high-grade cartilaginous loss is seen in those locations. Edema and fluid extends into the surrounding musculature, therefore component of myositis and cellulitis is likely. Although incompletely evaluated, there is possible edema involving the endplates at L5-S1, with possible intradiscal fluid, greater on the right. Although that could be degenerative, the possibility of discitis/osteomyelitis must be considered, and if warranted, consider further evaluation with MRI of the lumbar spine with contrast. D/ / Tapan Villareal MD / Tapan Villareal MD Interpreting Provider: Tapan Villareal MD Foreign Body Localization X-Ray 01/21/18 11:58 IMPRESSION: No evidence of metallic foreign body within the orbits. D/ / Moisés Cosme / Moisés Cosme Interpreting Provider: Moisés Cosme Lumbar Spine MRI 01/22/18 06:41 IMPRESSION: Markedly motion degraded study. L5-S1 endplate marrow edema and enhancement is most likely degenerative, given absence of intradiscal fluid signal intensity and paraspinal enhancement or edema. Right subarticular/foraminal disc protrusion at L5-S1 mildly narrows the right neural foramen. D/ / 01/22/2018 10:35:55 Emerson Sales MD / fernando Interpreting Provider: Emerson Sales MD Exam - Constitutional Vitals: Temp Pulse Resp BP Pulse Ox 98.3 F 117 18 138/86 98 01/22/18 10:35 01/22/18 10:35 01/22/18 10:35 01/22/18 10:35 01/22/18 10:35 Consult Discharge Plan - Plan Referrals: NONE,PCP [Primary Care Provider] -
[2018-01-22] MEDS ORDERED: Aminoglycoside Consult 1 EACH MC ONE (13:21)
[2018-01-22] MEDS ORDERED: Piperacillin/Tazobactam 3.375 GM in 0.9 % Sodium Chloride Mini Bag 100 ML IVPB SCH (16:00)
[2018-01-24 15:06] LABS: ANA HEp-2 IgG IFA <1:80 (<1:80)
[2018-01-25 14:14] LABS: Hepatitis B Core IgM Grayzone (Nonreactive)
[2018-01-25 14:15] LABS: Hepatitis C Virus Antibody Reactive (Nonreactive)
== END 2018-01-22 13:22 | disposition other institution (70) | DRG 872 ==
LOC: EMEROOARM 01:30 → 3NENU 01:30 → SUATTDRO 04:26 → 3NENU 04:49
PROVIDERS: ADMIT Internal Medicine; ATTEND Student in an Organized Health Care Education/Training Program
PROC: IRFLUID (2018-01-20 13:00)